=== PATIENT | male | born 1990 | race Hispanic/Latino ===

== ENCOUNTER 2018-10-30 13:16 | Emergency (ER) | payer OTHER ==
--- NOTE | 2018-10-30 14:14 | RAD REPORT ---
EXAM DESCRIPTION: RAD - Tib Fib Right - 10/30/2018 2:07 pm CLINICAL HISTORY: PAIN Trauma, pain COMPARISON: Foot Right 3 View dated 10/30/2018; Tib Fib Left dated 10/30/2018 FINDINGS: No acute fracture or dislocation is seen.
--- NOTE | 2018-10-30 14:14 | RAD REPORT ---
EXAM DESCRIPTION: RAD - Foot Right 3 View - 10/30/2018 2:07 pm CLINICAL HISTORY: PAIN Trauma, pain COMPARISON: No comparisons FINDINGS: No acute fracture or dislocation is seen.
--- NOTE | 2018-10-30 14:16 | RAD REPORT ---
EXAM DESCRIPTION: RAD - Tib Fib Left - 10/30/2018 2:09 pm CLINICAL HISTORY: PAIN Trauma, pain COMPARISON: No comparisons FINDINGS: No fracture or dislocation is evident.
[2018-10-30] MEDS ORDERED: IBUPROFEN 400 MG TAB ONE (14:38)
--- NOTE | 2018-10-30 14:54 | RAD REPORT ---
EXAM DESCRIPTION: RAD - Foot Left 3 View - 10/30/2018 2:07 pm CLINICAL HISTORY: PAIN COMPARISON: No comparisons FINDINGS: No acute fracture or dislocation evident. Tiny posterior calcaneal spur seen.
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
--- NOTE | 2018-10-30 15:24 | EDPHYS ---
Physician Documentation [facility] Name: Zackery Patel Age: 28 yrs Sex: Male : 1990 Arrival Date: 10/30/2018 Time: 13:20 Bed 24 Private MD: ED Physician Carol Wright HPI: 10/30 13:35 This 46 yrs old Male presents to ER via EMS with complaints of lower leg cp injury. Historical: - Allergies: 13:24 No Known Allergies; ca1 - Home Meds: 13:24 None [Active]; ca1 - PMHx: 13:24 None; ca1 - PSHx: 13:24 Knee surgery; ca1 - Immunization history:: Flu vaccine is not up to date. - Social history:: Smoking status: Patient uses tobacco products, denies chronic smoking, but will smoke occasionally. - Ebola Screening: : No symptoms or risks identified at this time. ROS: 13:30 Eyes: Negative for injury, pain, redness, and discharge. cp 13:30 Constitutional: Negative for body aches, chills, fever, poor PO intake. 13:30 ENT: Negative for drainage from ear(s), ear pain, sore throat, difficulty swallowing, difficulty handling secretions. 13:30 Cardiovascular: Negative for chest pain, edema, palpitations. 13:30 Neck: Negative for cp 13:30 Respiratory: Negative for cough, shortness of breath, wheezing. 13:30 Abdomen/GI: Negative for abdominal pain, vomiting, diarrhea, constipation, black/tarry stool, rectal bleeding. 13:30 Back: Negative for pain at rest, pain with movement. 13:30 MS/extremity: Positive for abrasion, contusion, of the left lower leg and right lower leg, Negative for decreased range of motion, paresthesias. 13:30 Neuro: Negative for altered mental status, headache, weakness. 13:30 All other systems are negative. Exam: 13:42 Constitutional: The patient appears in no acute distress, alert, awake, non-toxic, well cp developed, well nourished. 13:42 Head/Face: Normocephalic, atraumatic. cp 13:42 Eyes: Periorbital structures: appear normal, Pupils: equal, round, and reactive to light and accomodation, Extraocular movements: intact throughout, Conjunctiva: normal, no exudate, no injection, Sclera: no appreciated abnormality, Lids and lashes: appear normal, bilaterally. 13:42 ENT: External ear(s): no acute changes, Nose: is normal, Mouth: Lips: moist, Oral mucosa: pink and intact, moist, Posterior pharynx: Airway: no evidence of obstruction, patent, Tonsils: are normal in appearance. 13:42 Neck: External neck: is normal, C-spine: vertebral tenderness, is not appreciated, crepitus, is not appreciated, ROM/movement: is normal, is supple, without pain, no range of motions limitations, no meningismus, no nuchal rigidity. 13:42 Chest/axilla: Inspection: normal, Palpation: is normal, no crepitus, no tenderness. 13:42 Cardiovascular: Rate: normal, Rhythm: regular, Edema: is not appreciated. 13:42 Respiratory: the patient does not display signs of respiratory distress, Respirations: normal, no use of accessory muscles, no shallow respirations, Breath sounds: are clear throughout, no decreased breath sounds, no stridor, no wheezing. 13:42 Abdomen/GI: Inspection: abdomen appears normal, Bowel sounds: active, in the , Palpation: soft, in all quadrants. 13:42 Back: pain, is absent, that is very mild, ROM is normal. 13:42 : CVA tenderness, is absent. 13:42 Musculoskeletal/extremity: Extremities: grossly normal except: noted in the right lower leg and left lower leg: ecchymosis, pain, swelling, tenderness, Perfusion: the extremity is normally perfused throughout. 13:42 Skin: cellulitis, is not appreciated. 13:42 Neuro: Orientation: to person, place \T\ time. Mentation: is normal, Cerebellar function: is grossly normal, Motor: moves all fours, strength is normal. Vital Signs: 13:22 BP 176 / 70; Pulse 76; Resp 20; Temp 98.5; Pulse Ox 100% ; lt1 13:24 BP 176 / 70; Pulse 79; Resp 19; Temp 98.5; Pulse Ox 100% on R/A; Weight 90.72 kg; ca1 Height 5 ft. 7 in. (170.18 cm); Pain 6/10; 14:22 BP 171 / 76; Pulse 81; Resp 19; Pulse Ox 100% on R/A; ca1 15:18 BP 149 / 82; Pulse 70; Resp 19; Pulse Ox 100% on R/A; ca1 13:24 Body Mass Index 31.32 (90.72 kg, 170.18 cm) ca1 MDM: 13:24 Patient medically screened. cp 13:30 Differential diagnosis: dislocation, open fracture, contusion. cp 15:22 Data reviewed: vital signs, nurses notes, radiologic studies, plain films, and as a cp result, I will discharge patient. 15:22 Test interpretation: by ED physician or midlevel provider: plain radiologic studies. cp Counseling: I had a detailed discussion with the patient and/or guardian regarding: the historical points, exam findings, and any diagnostic results supporting the discharge/admit diagnosis, radiology results, to return to the emergency department if symptoms worsen or persist or if there are any questions or concerns that arise at home. 10/30 13:23 Order name: XRAY Tib Fib LEFT; Complete Time: 14:57 cp 10/30 14:57 Interpretation: Report reviewed. cp 10/30 13:23 Order name: XRAY Tib Fib RIGHT; Complete Time: 14:57 cp 10/30 14:58 Interpretation: Report reviewed. cp 10/30 13:23 Order name: XRAY Foot RIGHT 3 View; Complete Time: 14:57 cp 10/30 14:58 Interpretation: Report reviewed. cp 10/30 13:23 Order name: XRAY Foot LEFT 3 View; Complete Time: 14:57 cp 10/30 14:58 Interpretation: Reviewed report. cp 10/30 14:23 Order name: Wound dressing: please clean and dress wounds; Complete Time: 14:32 cp 10/30 15:34 Order name: Crutches; Complete Time: 15:34 ca1 Administered Medications: 14:24 Drug: Ibuprofen 800 mg Route: PO; ca1 15:33 Follow up: Response: No adverse reaction; Pain is decreased ca1 Disposition: 10/31 07:44 Co-signature as Attending Physician, Carlo Wright MD I agree with the assessment and flor plan of care. Disposition: 10/30/18 15:23 Discharged to Home. Impression: Contusion of unspecified lower leg - bilateral. - Condition is Stable. - Discharge Instructions: Contusion. - Prescriptions for Naprosyn 500 mg Oral Tablet - take 1 tablet by ORAL route 2 times per day take with food; 20 tablet. - Medication Reconciliation Form, Thank You Letter, Antibiotic Education, Prescription Opioid Use, Work release form form. - Follow up: Private Physician; When: 1 - 2 days; Reason: Recheck today's complaints. - Problem is new. - Symptoms have improved. Signatures: Dispatcher [employer] EDCarlo Garcia MD MD cha Page, Corey, PA PA cp Andrzej, Kerline, RN RN ca1 Corrections: (The following items were deleted from the chart) 10/30 15:56 15:23 10/30/2018 15:23 Discharged to Home. Impression: Contusion of unspecified lower ca1 leg - bilateral. Condition is Stable. Forms are Medication Reconciliation Form, Thank You Letter, Antibiotic Education, Prescription Opioid Use. Follow up: Private Physician; When: 1 - 2 days; Reason: Recheck today's complaints. Problem is new. Symptoms have improved. cp
== END 2018-10-30 15:56 | disposition home or self-care (01) ==
LOC: EDBD 13:16 → ER 13:16
DX: S80.12XA Contusion of left lower leg, initial encounter (principal); S80.11XA Contusion of right lower leg, initial encounter; W20.8XXA Other cause of strike by thrown, projected or falling object, initial encounter; Y93.9 Activity, unspecified
CPT/HCPCS: 99284